=== PATIENT | male | born 1990 | race Two or more races ===

== ENCOUNTER 2017-12-30 10:33 | Inpatient (IN) | payer BC, OTHER ==
[2017-12-30 11:09] VITALS: BMI 19.2
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
[2017-12-30] MEDS ORDERED: IBUPROFEN 400 MG TABLET (FP) PO PRN (14:35)
[2017-12-30] MEDS ORDERED: MAGNESIUM HYDROX 2400MG/30ML ORAL SUSPENSION 30 ML CUP PO PRN (14:35)
[2017-12-30] MEDS ORDERED: hydrOXYzine PAMOATE 50 MG CAPSULE (FP) PO PRN (14:35)
[2017-12-30] MEDS ORDERED: P-EPHED 60MG/TRIPROLIDI 2.5MG TABLET PO PRN (14:35)
[2017-12-30] MEDS ORDERED: ACETAMINOPHEN 325 MG TABLET (FP) PO PRN (14:35)
[2017-12-30] MEDS ORDERED: guaiFENesin/D-METHORPHAN HB 10 ML UNIT-DOSE CUPS PO PRN (14:35)
[2017-12-30] MEDS ORDERED: MAG HYDROX/AL HYDROX/SIMETH 30 ML UNIT-DOSE CUP PO PRN (14:35)
[2017-12-30] MEDS ORDERED: LOPERAMIDE HCL 2 MG CAPSULE PO PRN (14:35)
[2017-12-30] MEDS ORDERED: chlordiazePOXIDE HCL 25 MG CAPSULE PO PRN (14:35)
[2017-12-30] MEDS ORDERED: MENTHOL/PHENOL 1 EACH UD MM PRN (14:35)
[2017-12-30] MEDS ORDERED: MAGNESIUM CITRATE 300 ML BOTTLE PO PRN (14:35)
[2017-12-30] MEDS ORDERED: NICOTINE POLACRILEX 2 MG GUM BC PRN (14:35)
[2017-12-30] MEDS: chlordiazePOXIDE HCL 25 MG CAPSULE PO SCH ×2 (17:26→22:24)
[2017-12-30] MEDS: NICOTINE 14 MG/24 HOURS TOPICAL PATCH TD SCH (17:28)
[2017-12-30 21:12] LABS: URINE APPEARANCE CLEAR; URINE BILIRUBIN NEGATIVE (<2.0 mg/dL); URINE COLOR YELLOW; URINE GLUCOSE (UA) NEGATIVE (NEGATIVE); URINE KETONE NEGATIVE (NEGATIVE); URINE LEUK ESTERASE NEGATIVE (NEGATIVE); URINE NITRITE NEGATIVE (NEGATIVE); URINE PROTEIN NEGATIVE (NEGATIVE)
[2017-12-30] MEDS ORDERED: MELATONIN 5 MG TABLETS PO PRN (22:00)
[2017-12-30] MEDS: THIAMINE HCL 100 MG TABLET (FP) PO SCH (22:24)
[2017-12-31] MEDS: chlordiazePOXIDE HCL 25 MG CAPSULE PO SCH ×4 (05:48→22:32)
[2017-12-31 09:42] LABS: HEMATOCRIT 37.9 % (35.4-49); HEMOGLOBIN 12.5 GM/dL (11.7-16.9); MCH 27.3 pg (25.7-33.7); MEAN CELL VOLUME 82.9 fl (80-96); MEAN PLT VOLUME 10.6 fl (7.5-11.1); PLATELET COUNT 154 K/MM3 (134-434); RBC 4.57 M/mm3 (4.00-5.60); RDW 13.8 % (11.9-15.9); WHITE BLOOD COUNT 4.4 K/mm3 (4.0-10.0)
[2017-12-31 09:49] LABS: ALBUMIN 3.2 g/dl (3.4-5.0); ANION GAP 2 (8-16); BILIRUBIN,TOTAL 0.7 mg/dL (0.2-1.0); BLOOD UREA NITROGEN 10 mg/dL (7-18); CHLORIDE 110 mmol/L (98-107); CO2 32 mmol/L (21-32); GLUCOSE,RANDOM 77 mg/dL (74-106); POTASSIUM 4.1 mmol/L (3.5-5.1); SGOT/AST 12 U/L (15-37); SGPT/ALT 13 U/L (12-78); SODIUM 144 mmol/L (136-145); TOT PROT 5.8 g/dl (6.4-8.2)
[2017-12-31 09:50] LABS: ALK PHOS 62 U/L (45-117)
[2017-12-31] MEDS: PRENATAL VITAMINS W/ FOLIC ACID TABLET (FP) PO SCH (10:34)
[2017-12-31] MEDS: NICOTINE 14 MG/24 HOURS TOPICAL PATCH TD SCH (10:35)
--- NOTE | 2017-12-31 10:47 | EKG ---
Test Reason : Blood Pressure : / mmHG Vent. Rate : 072 BPM Atrial Rate : 072 BPM P-R Int : 140 ms QRS Dur : 092 ms QT Int : 390 ms P-R-T Axes : 068 064 064 degrees QTc Int : 427 ms NORMAL SINUS RHYTHM WITH SINUS ARRHYTHMIA NORMAL ECG NO PREVIOUS ECGS AVAILABLE Confirmed by CUAUHTEMOC BUSTOS MD ([id number]) on 12/31/2017 10:46:54 AM Referred By: Confirmed By:CUAUHTEMOC BUSTOS MD
--- NOTE | 2017-12-31 10:56 | PN ---
S CIWA - CIWA Score Nausea/Vomitin Muscle Tremors: 3 Anxiety: 3 Agitation: 2 Paroxysmal Sweats: 1-Minimal Palms Moist Orientation: 0-Oriented Tacttile Disturbances: 1-Very Mild Itch/Numbness Auditory Disturbances: 1-Very Mild Visual Disturbances: 0-None Headache: 2-Mild CIWA-Ar Total Score: 16 S Progress Note (SOAP) Subjective: ALERT,IRRITABLE,ANXIOUS,INTERRUPTED SLEEP,TREMOR Objective: 12/31/17 10:55 Vital Signs Temperature 98.1 F 12/31/17 10:12 Pulse Rate 83 12/31/17 10:12 Respiratory Rate 18 12/31/17 10:12 Blood Pressure 92/58 12/31/17 10:12 O2 Sat by Pulse Oximetry (%) Laboratory Last Values WBC 4.4 K/mm3 (4.0-10.0) 12/31/17 07:00 RBC 4.57 M/mm3 (4.00-5.60) 12/31/17 07:00 Hgb 12.5 GM/dL (11.7-16.9) 12/31/17 07:00 Hct 37.9 % (35.4-49) 12/31/17 07:00 MCV 82.9 fl (80-96) 12/31/17 07:00 MCH 27.3 pg (25.7-33.7) 12/31/17 07:00 MCHC 33.0 g/dl (32.0-35.9) 12/31/17 07:00 RDW 13.8 % (11.9-15.9) 12/31/17 07:00 Plt Count 154 K/MM3 (134-434) 12/31/17 07:00 MPV 10.6 fl (7.5-11.1) 12/31/17 07:00 Sodium 144 mmol/L (136-145) 12/31/17 07:00 Potassium 4.1 mmol/L (3.5-5.1) 12/31/17 07:00 Chloride 110 mmol/L (98-107) H 12/31/17 07:00 Carbon Dioxide 32 mmol/L (21-32) 12/31/17 07:00 Anion Gap 2 (8-16) L 12/31/17 07:00 BUN 10 mg/dL (7-18) 12/31/17 07:00 Creatinine 1.0 mg/dL (0.7-1.3) 12/31/17 07:00 Creat Clearance w eGFR > 60 (>60) 12/31/17 07:00 Random Glucose 77 mg/dL (74-106) 12/31/17 07:00 Calcium 8.0 mg/dL (8.5-10.1) L 12/31/17 07:00 Total Bilirubin 0.7 mg/dL (0.2-1.0) 12/31/17 07:00 AST 12 U/L (15-37) L 12/31/17 07:00 ALT 13 U/L (12-78) 12/31/17 07:00 Alkaline Phosphatase 62 U/L (45-117) 12/31/17 07:00 Total Protein 5.8 g/dl (6.4-8.2) L 12/31/17 07:00 Albumin 3.2 g/dl (3.4-5.0) L 12/31/17 07:00 Urine Color Yellow 12/30/17 18:39 Urine Appearance Clear 12/30/17 18:39 Urine pH 5.0 (5.0-8.0) 12/30/17 18:39 Ur Specific [place] 1.026 (1.001-1.035) 12/30/17 18:39 Urine Protein Negative (NEGATIVE) 12/30/17 18:39 Urine Glucose (UA) Negative (NEGATIVE) 12/30/17 18:39 Urine Ketones Negative (NEGATIVE) 12/30/17 18:39 Urine Blood Negative (NEGATIVE) 12/30/17 18:39 Urine Nitrite Negative (NEGATIVE) 12/30/17 18:39 Urine Bilirubin Negative (<2.0 mg/dL) 12/30/17 18:39 Urine Urobilinogen 2.0 mg/dL (0.2-1.0) 12/30/17 18:39 Ur Leukocyte Esterase Negative (NEGATIVE) 12/30/17 18:39 RPR Titer Nonreactive (NONREACTIVE) 12/31/17 07:00 HIV 1&2 Antibody Screen Negative 12/31/17 07:00 HIV P24 Antigen Negative 12/31/17 07:00 Assessment: 12/31/17 10:55 WITHDRAWAL SYMPTOM Plan: CONTINUE DETOX
--- NOTE | 2017-12-31 15:07 | CONSULT ---
[facility] Psychiatric Consult - Data Date of interview: 12/31/17 Admission source: [facility] Identifying data: First admission to [facility] [place] for this 27 y/o AA male seeking detox treatment on for alcohol and cannabis dependence.Patient is single without children,homeless,unemployed and supported on SSI benefits. Substance Abuse History: Confirmed by patient in this interview.Details in current [facility] report : Smoking history: Current every day smoker. Have you smoked in the past 12 months: Yes. Aproximately how many cigarettes per day: 10. Cigars Per Day: 10. Hx Chewing Tobacco Use: No. Initiated information on smoking cessation: Yes. 'Breaking Loose' booklet given: 12/30/17. - Substance & Tx. History. Hx Alcohol Use: Yes. Hx Substance Use: Yes. Substance Use Type : Alcohol. Hx Substance Use Treatment: Yes. - Substances Abused. Alcohol. Route: Oral. Frequency: Daily. Amount used: liquor- 1 pint, beer- 1 six pack. Age of first use: 16. Date of Last Use: 12/30/17. Marijuana/ Hashish. Route: Smoking. Frequency: Daily. Amount used: 1 blunt. Age of first use: 16. Date of Last Use: 12/29/17 Medical History: Weight loss. Psychiatric History: Patient admits to two psychiatric hospitalizations ( [place]).Diagnosed with " schizophrenia and bipolar disorder ".Prescribed psychotropic medications but the patient is not able to recall names of the drugs.No psychiatric OPD care providers.Mr French indicates that he has NOT taken medications " for a while ".Patient denies history of suicide attempts. Physical/Sexual Abuse/Trauma History: Patient denies. Additional Comment: Urine Drug Screen Results: THC-Marijuana.Noted. Mental Status Exam - Mental Status Exam Alert and Oriented to: Time, Place, Person Cognitive Function: Grossly Intact Patient Appearance: Unkempt (malodorous), Disheveled (covered with tattoos : arms + forearms) Mood: Nervous, Withdrawn Affect: Blunted Patient Behavior: Passive, Fatigued Speech Pattern: Clear Voice Loudness: Normal Thought Process: Goal Oriented Thought Disorder: Bizarre Hallucinations: Denies Suicidal Ideation: Denies Homicidal Ideation: Denies Insight/Judgement: Poor Sleep: Fair Appetite: Good Muscle strength/Tone: Normal Gait/Station: Normal Psychiatric Findings - Problem List ([place] 1, 2,3) (1) Alcohol dependence Current Visit: Yes Status: Acute (2) Cannabis dependence, uncomplicated Current Visit: Yes Status: Acute (3) Nicotine dependence, uncomplicated Current Visit: Yes Status: Acute (4) Schizophrenia Current Visit: Yes Status: Suspected - Initial Treatment Plan Initial Treatment Plan: Psychoeducation.Detoxification.Pharmacy claims of are consistent for abilify 20 mg/30 days + lexapro 20 mg/30 days.Discussed with patient.Mr French agrees to resume abilify.Will restart at 5 mg po hs and titrate (up to 15 mg/day).Observation.
[2017-12-31] MEDS: ARIPiprazole 5 MG TABLET (FP) PO SCH (22:32)
[2017-12-31] MEDS: THIAMINE HCL 100 MG TABLET (FP) PO SCH (22:32)
[2018-01-01] MEDS: chlordiazePOXIDE HCL 25 MG CAPSULE PO SCH ×2 (05:25→10:58)
[2018-01-01] MEDS: PRENATAL VITAMINS W/ FOLIC ACID TABLET (FP) PO SCH (10:57)
[2018-01-01] MEDS: NICOTINE 14 MG/24 HOURS TOPICAL PATCH TD SCH (10:58)
--- NOTE | 2018-01-01 12:30 | PN ---
S CIWA - CIWA Score Nausea/Vomitin Muscle Tremors: 3 Anxiety: 3 Agitation: 2 Paroxysmal Sweats: 1-Minimal Palms Moist Orientation: 0-Oriented Tacttile Disturbances: 1-Very Mild Itch/Numbness Auditory Disturbances: 1-Very Mild Visual Disturbances: 0-None Headache: 2-Mild CIWA-Ar Total Score: 16 BHS Progress Note (SOAP) Subjective: ALERT,IRRITABLE,ANXIOUS,INTERRUPTED SLEEP,TREMOR Objective: 01/01/18 12:28 Vital Signs Temperature 97.9 F 01/01/18 08:56 Pulse Rate 66 01/01/18 08:56 Respiratory Rate 18 01/01/18 08:56 Blood Pressure 106/58 01/01/18 08:56 O2 Sat by Pulse Oximetry (%) Assessment: 01/01/18 12:28 WITHDRAWAL SYMPTOM 01/01/18 12:29 Laboratory Last Values WBC 4.4 K/mm3 (4.0-10.0) 12/31/17 07:00 RBC 4.57 M/mm3 (4.00-5.60) 12/31/17 07:00 Hgb 12.5 GM/dL (11.7-16.9) 12/31/17 07:00 Hct 37.9 % (35.4-49) 12/31/17 07:00 MCV 82.9 fl (80-96) 12/31/17 07:00 MCH 27.3 pg (25.7-33.7) 12/31/17 07:00 MCHC 33.0 g/dl (32.0-35.9) 12/31/17 07:00 RDW 13.8 % (11.9-15.9) 12/31/17 07:00 Plt Count 154 K/MM3 (134-434) 12/31/17 07:00 MPV 10.6 fl (7.5-11.1) 12/31/17 07:00 Sodium 144 mmol/L (136-145) 12/31/17 07:00 Potassium 4.1 mmol/L (3.5-5.1) 12/31/17 07:00 Chloride 110 mmol/L (98-107) H 12/31/17 07:00 Carbon Dioxide 32 mmol/L (21-32) 12/31/17 07:00 Anion Gap 2 (8-16) L 12/31/17 07:00 BUN 10 mg/dL (7-18) 12/31/17 07:00 Creatinine 1.0 mg/dL (0.7-1.3) 12/31/17 07:00 Creat Clearance w eGFR > 60 (>60) 12/31/17 07:00 Random Glucose 77 mg/dL (74-106) 12/31/17 07:00 Calcium 8.0 mg/dL (8.5-10.1) L 12/31/17 07:00 Total Bilirubin 0.7 mg/dL (0.2-1.0) 12/31/17 07:00 AST 12 U/L (15-37) L 12/31/17 07:00 ALT 13 U/L (12-78) 12/31/17 07:00 Alkaline Phosphatase 62 U/L (45-117) 12/31/17 07:00 Total Protein 5.8 g/dl (6.4-8.2) L 12/31/17 07:00 Albumin 3.2 g/dl (3.4-5.0) L 12/31/17 07:00 Urine Color Yellow 12/30/17 18:39 Urine Appearance Clear 12/30/17 18:39 Urine pH 5.0 (5.0-8.0) 12/30/17 18:39 Ur Specific [place] 1.026 (1.001-1.035) 12/30/17 18:39 Urine Protein Negative (NEGATIVE) 12/30/17 18:39 Urine Glucose (UA) Negative (NEGATIVE) 12/30/17 18:39 Urine Ketones Negative (NEGATIVE) 12/30/17 18:39 Urine Blood Negative (NEGATIVE) 12/30/17 18:39 Urine Nitrite Negative (NEGATIVE) 12/30/17 18:39 Urine Bilirubin Negative (<2.0 mg/dL) 12/30/17 18:39 Urine Urobilinogen 2.0 mg/dL (0.2-1.0) 12/30/17 18:39 Ur Leukocyte Esterase Negative (NEGATIVE) 12/30/17 18:39 RPR Titer Nonreactive (NONREACTIVE) 12/31/17 07:00 HIV 1&2 Antibody Screen Negative 12/31/17 07:00 HIV P24 Antigen Negative 12/31/17 07:00 Plan: CONTINUE DETOX
[2018-01-01] MEDS: chlordiazePOXIDE 5 MG CAPSULE PO SCH ×2 (18:33→22:42)
[2018-01-01] MEDS: ARIPiprazole 5 MG TABLET (FP) PO SCH (22:42)
[2018-01-01] MEDS: THIAMINE HCL 100 MG TABLET (FP) PO SCH (22:42)
[2018-01-02] MEDS: chlordiazePOXIDE 5 MG CAPSULE PO SCH ×2 (05:43→10:35)
--- NOTE | 2018-01-02 10:06 | PN ---
S Progress Note (SOAP) Subjective: ALERT,IRRITABLE,INTERRUPTED SLEEP Objective: 01/02/18 10:05 Vital Signs Temperature 98.1 F 01/02/18 09:25 Pulse Rate 81 01/02/18 09:25 Respiratory Rate 16 01/02/18 09:25 Blood Pressure 98/59 01/02/18 09:25 O2 Sat by Pulse Oximetry (%) Assessment: 01/02/18 10:06 WITHDRAWAL SYMPTOM Plan: CONTINUE DETOX,DISCHARGE IN AM
[2018-01-02] MEDS: PRENATAL VITAMINS W/ FOLIC ACID TABLET (FP) PO SCH (10:35)
[2018-01-02] MEDS: NICOTINE 14 MG/24 HOURS TOPICAL PATCH TD SCH (10:35)
[2018-01-02] MEDS: chlordiazePOXIDE HCL 10 MG CAPSULE PO SCH ×2 (17:55→22:45)
[2018-01-02] MEDS: ARIPiprazole 5 MG TABLET (FP) PO SCH (22:45)
[2018-01-02] MEDS: THIAMINE HCL 100 MG TABLET (FP) PO SCH (22:45)
[2018-01-03] MEDS: chlordiazePOXIDE HCL 10 MG CAPSULE PO SCH ×2 (06:09→10:58)
--- NOTE | 2018-01-03 08:14 | PN ---
S Progress Note (SOAP) Subjective: ALERT,NO COMPLAINT Objective: 01/03/18 08:12 Vital Signs Temperature 98 F 01/03/18 06:22 Pulse Rate 61 01/03/18 06:22 Respiratory Rate 16 01/03/18 06:22 Blood Pressure 90/51 01/03/18 06:22 O2 Sat by Pulse Oximetry (%) Assessment: 01/03/18 08:12 DETOX COMPLETED,NO WITHDRAWAL SYMPTOM Plan: DISCHARGE TODAY,FOLLOW UP WITH AFTER CARE PROGRAM ARRANGEMENT
--- NOTE | 2018-01-03 08:18 | DS ---
[facility] Detox Discharge Summary Admission Date: 12/30/17 Discharge Date: 01/03/18 - History Present History: Alcohol Dependence, Cocaine Dependence Additional Comments: FOLLOW UP WITH AFTER CARE PROGRAM ARRANGEMENT Pertinent Past History: NICOTINE DEPENDENCE - Physical Exam Results Vital Signs: Vital Signs Temperature 98 F 01/03/18 06:22 Pulse Rate 61 01/03/18 06:22 Respiratory Rate 16 01/03/18 06:22 Blood Pressure 90/51 01/03/18 06:22 O2 Sat by Pulse Oximetry (%) Pertinent Admission Physical Exam Findings: WITHDRAWAL SIGNS AND SYMPTOM Laboratory Last Values WBC 4.4 K/mm3 (4.0-10.0) 12/31/17 07:00 RBC 4.57 M/mm3 (4.00-5.60) 12/31/17 07:00 Hgb 12.5 GM/dL (11.7-16.9) 12/31/17 07:00 Hct 37.9 % (35.4-49) 12/31/17 07:00 MCV 82.9 fl (80-96) 12/31/17 07:00 MCH 27.3 pg (25.7-33.7) 12/31/17 07:00 MCHC 33.0 g/dl (32.0-35.9) 12/31/17 07:00 RDW 13.8 % (11.9-15.9) 12/31/17 07:00 Plt Count 154 K/MM3 (134-434) 12/31/17 07:00 MPV 10.6 fl (7.5-11.1) 12/31/17 07:00 Sodium 144 mmol/L (136-145) 12/31/17 07:00 Potassium 4.1 mmol/L (3.5-5.1) 12/31/17 07:00 Chloride 110 mmol/L (98-107) H 12/31/17 07:00 Carbon Dioxide 32 mmol/L (21-32) 12/31/17 07:00 Anion Gap 2 (8-16) L 12/31/17 07:00 BUN 10 mg/dL (7-18) 12/31/17 07:00 Creatinine 1.0 mg/dL (0.7-1.3) 12/31/17 07:00 Creat Clearance w eGFR > 60 (>60) 12/31/17 07:00 Random Glucose 77 mg/dL (74-106) 12/31/17 07:00 Calcium 8.0 mg/dL (8.5-10.1) L 12/31/17 07:00 Total Bilirubin 0.7 mg/dL (0.2-1.0) 12/31/17 07:00 AST 12 U/L (15-37) L 12/31/17 07:00 ALT 13 U/L (12-78) 12/31/17 07:00 Alkaline Phosphatase 62 U/L (45-117) 12/31/17 07:00 Total Protein 5.8 g/dl (6.4-8.2) L 12/31/17 07:00 Albumin 3.2 g/dl (3.4-5.0) L 12/31/17 07:00 Urine Color Yellow 12/30/17 18:39 Urine Appearance Clear 12/30/17 18:39 Urine pH 5.0 (5.0-8.0) 12/30/17 18:39 Ur Specific [place] 1.026 (1.001-1.035) 12/30/17 18:39 Urine Protein Negative (NEGATIVE) 12/30/17 18:39 Urine Glucose (UA) Negative (NEGATIVE) 12/30/17 18:39 Urine Ketones Negative (NEGATIVE) 12/30/17 18:39 Urine Blood Negative (NEGATIVE) 12/30/17 18:39 Urine Nitrite Negative (NEGATIVE) 12/30/17 18:39 Urine Bilirubin Negative (<2.0 mg/dL) 12/30/17 18:39 Urine Urobilinogen 2.0 mg/dL (0.2-1.0) 12/30/17 18:39 Ur Leukocyte Esterase Negative (NEGATIVE) 12/30/17 18:39 RPR Titer Nonreactive (NONREACTIVE) 12/31/17 07:00 HIV 1&2 Antibody Screen Negative 12/31/17 07:00 HIV P24 Antigen Negative 12/31/17 07:00 Vital Signs Temperature 98 F 01/03/18 06:22 Pulse Rate 61 01/03/18 06:22 Respiratory Rate 16 01/03/18 06:22 Blood Pressure 90/51 01/03/18 06:22 O2 Sat by Pulse Oximetry (%) - Treatment Hospital Course: Detox Protocol Followed, Detoxed Safely, Responded well, Discharged Condition Good, Rehab Referral Accepted Patient has Accepted a Rehab Referral to: [facility] - Medication Discharge Medications: Ambulatory Orders Unobtainable [Unobtainable] 12/30/17 - Diagnosis (1) Alcohol dependence with uncomplicated intoxication Current Visit: Yes Status: Acute (2) Cannabis dependence, uncomplicated Current Visit: Yes Status: Acute (3) Nicotine dependence, uncomplicated Current Visit: Yes Status: Acute - AMA Did Patient Leave Against Medical Advice: No
[2018-01-03] MEDS: PRENATAL VITAMINS W/ FOLIC ACID TABLET (FP) PO SCH (10:57)
[2018-01-03] MEDS: NICOTINE 14 MG/24 HOURS TOPICAL PATCH TD SCH (10:58)
[2018-01-03 14:07] VITALS: BP 111/69; PULSE 71; TEMP 97.1
== END 2018-01-03 17:15 | disposition home or self-care (01) | DRG 775 ==
LOC: YASAS 10:33 → Y6N 15:21
PROVIDERS: ADMIT Internal Medicine; ATTEND Internal Medicine
PROC: HZ2ZZZZ Detoxification Services for Substance Abuse Treatment (ICD-10-PCS; principal; 2017-12-30)
DX: F10.230 Alcohol dependence with withdrawal, uncomplicated (principal); F12.20 Cannabis dependence, uncomplicated; F17.210 Nicotine dependence, cigarettes, uncomplicated; F20.9 Schizophrenia, unspecified; F32.9 Major depressive disorder, single episode, unspecified; R63.6 Underweight; Z68.1 Body mass index [BMI] 19.9 or less, adult
CPT/HCPCS: 36415; 80053; 81003; 85027; 86593; 87389; 93005; 93010

== ENCOUNTER 2018-01-03 17:33 | Inpatient (IN) | payer BC ==
[2018-01-03] MEDS ORDERED: MAGNESIUM HYDROX 2400MG/30ML ORAL SUSPENSION 30 ML CUP PO PRN (18:33)
[2018-01-03] MEDS ORDERED: P-EPHED 60MG/TRIPROLIDI 2.5MG TABLET PO PRN (18:33)
[2018-01-03] MEDS ORDERED: NICOTINE POLACRILEX 2 MG GUM BUC PRN (18:33)
[2018-01-03] MEDS ORDERED: MAGNESIUM CITRATE 300 ML BOTTLE PO PRN (18:33)
[2018-01-03] MEDS ORDERED: MENTHOL/PHENOL 1 EACH UD MM PRN (18:33)
[2018-01-03] MEDS ORDERED: LOPERAMIDE HCL 2 MG CAPSULE PO PRN (18:33)
[2018-01-03] MEDS ORDERED: guaiFENesin/D-METHORPHAN HB 10 ML UNIT-DOSE CUPS PO PRN (18:33)
[2018-01-03] MEDS ORDERED: hydrOXYzine PAMOATE 50 MG CAPSULE (FP) PO PRN (18:33)
[2018-01-03] MEDS ORDERED: IBUPROFEN 400 MG TABLET (FP) PO PRN (18:33)
[2018-01-03] MEDS ORDERED: MAG HYDROX/AL HYDROX/SIMETH 30 ML UNIT-DOSE CUP PO PRN (18:33)
[2018-01-03] MEDS ORDERED: ACETAMINOPHEN 325 MG TABLET (FP) PO PRN (18:35)
--- NOTE | 2018-01-03 18:35 | HP ---
[facility] Rehab Assess/Revision - Admission History Admitted to Rehab from: [facility] Date of Admission to Rehab: 01/03/18 - Findings Detox History & Physical reviewed: Yes Concur with findings: Yes Inpatient Rehab Admission - Initial Determination Are CD services needed?: Yes Free of communicable disease: Yes Not in need of hospitalization: Yes - Rehab Admission Criteria Previous failed treatment: Yes Poor recovery environment: Yes Comorbidities: Yes Lacks judgement: Yes Patient is meeting Inpatient Rehab admission criteria:: Yes
[2018-01-03 18:41] VITALS: BMI 20.5
[2018-01-03] MEDS ORDERED: THIAMINE HCL 100 MG TABLET (FP) PO SCH (22:00)
[2018-01-03] MEDS ORDERED: MELATONIN 5 MG TABLETS PO PRN (22:00)
[2018-01-04 06:52] VITALS: BP 94/72; PULSE 83; TEMP 97.8
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
[2018-01-04] MEDS ORDERED: PRENATAL VITAMINS W/ FOLIC ACID TABLET (FP) PO SCH (10:00)
[2018-01-04] MEDS ORDERED: NICOTINE 14 MG/24 HOURS TOPICAL PATCH TD SCH (10:00)
[2018-01-04] MEDS ORDERED: ESCITALOPRAM OXALATE 10 MG TABLET (FP) PO SCH (11:00)
[2018-01-04] MEDS ORDERED: OLANZapine 10 MG TABLET PO SCH (22:00)
== END 2018-01-04 10:40 | disposition left against medical advice (07) | DRG 770 ==
LOC: YASAS 17:33 → Y5N 17:34
PROVIDERS: ADMIT Psychiatry & Neurology Psychiatry; ATTEND Psychiatry & Neurology Psychiatry
PROC: HZ42ZZZ Group Counseling for Substance Abuse Treatment, Cognitive-Behavioral (ICD-10-PCS; principal; 2018-01-03)
DX: F10.20 Alcohol dependence, uncomplicated (principal); F12.20 Cannabis dependence, uncomplicated; F17.210 Nicotine dependence, cigarettes, uncomplicated; F20.9 Schizophrenia, unspecified